=== PATIENT | female | born 1960 | race Asian ===

== ENCOUNTER 2018-08-08 13:12 | Emergency (ER) | payer SELFPAY ==
[~2018-08-08] VITALS: Ht 160 cm; Wt 47.2 kg
--- NOTE | 2018-08-08 13:30 | NUR ---
ED Nurse Note: PT ASKED TO CHANGE INTO GOWN FOR EVALUATION AND SO SHE CAN BE CONNECTED TO MEDICAL RECORDS ANALYST. PT STATES IT IS "TOO COLD" AND THAT SHE WANTS "A YORUBA DOCTOR" AND IS RESISTIVE TO CARE. PT INFORMED THAT WE DO NOT HAVE A YORUBA PHYSICIAN AND ASKED WHY SHE CALLED 911 IF SHE WANTED TO SEE A YORUBA DOCTOR. NO ANSWER. PT CALLED HER TO PICK HER UP FROM [facility]. PT'S GIVEN ADDRESS TO [facility]. PT'S STATES HE WILL BE COMING TO PICK HER UP FROM THE WAITING ROOM. 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 PT NEVER SEEN BY DR. PRESTON.
--- NOTE | 2018-08-08 13:34 | Emergency Room Report ---
History of Present Illness General Chief Complaint: Lower Back Pain or Injury Source: Significant Other Present Illness Allergies: Coded Allergies: No Known Allergies (Unverified , 08/08/18) Patient History Now: No Nursing Documentation-[facility] Past Medical History: No Stated History Physical Exam Vital Signs Date Time Temp Pulse Resp B/P (MAP) Pulse Ox O2 Delivery O2 Flow Rate FiO2 08/08/18 13:13 98.4 70 16 97/54 98 Room Air Medical Decision Making ER Course patient left without being seen.She was brought in by paramedics was in the ambulance bay in acute pain lower back and pelvic area. CT had been ordered however patient left prior to being seen after arriving Last Vital Signs Date Time Temp Pulse Resp B/P (MAP) Pulse Ox O2 Delivery O2 Flow Rate FiO2 08/08/18 13:13 98.4 70 16 97/54 98 Room Air Status: unchanged Disposition: LEFT W/OUT BEING SEEN Condition: Unknown Jordan Hammond DO Aug 08, 2018 13:34
[2018-08-08 13:50] VITALS: BP 97/54
== END 2018-08-08 13:30 | disposition left against medical advice (07) ==
LOC: EDBD 13:12 → EMR 13:30
DX: M54.5 Low back pain (principal); Z53.21 Procedure and treatment not carried out due to patient leaving prior to being seen by health care provider

== ENCOUNTER 2018-09-16 03:44 | Emergency (ER) | payer SELFPAY ==
[~2018-09-16] VITALS: Ht 162.6 cm; Wt 54.4 kg
[2018-09-16] VITALS (9 sets, daily range): BP systolic 129–160; BP diastolic 77–100
--- NOTE | 2018-09-16 03:46 | NUR ---
ED Nurse Note: Pt TRUDY 29 from home for overdose and said SA. Stated that patient had been trying to harm herself throughout the night. Pt was found by in restroom with multiple pill bottles on floor (Clonazepam 1mg, Olanzapine 50, Quetiapine 5 mg), unknown how many pills were taken. Upon arrival pt seen with bruising on left eye and left side of head, cut on bridge of nose and dried blood on side of mouth. Pt A/Ox2, czech speaking, unable to answer questions adequately as pt remains confused and disoriented. Pt denying suicidal ideations and denying taking too many pills.
[2018-09-16] MEDS ORDERED: KLONOPIN1 MG ORAL (03:52)
[2018-09-16] MEDS ORDERED: QUETIAPINE FUMA50 MG ORAL (03:52)
[2018-09-16] MEDS ORDERED: ZYPREXA5 MG ORAL (03:52)
--- NOTE | 2018-09-16 03:53 | Emergency Room Report ---
History of Present Illness General Chief Complaint: Overdose Source: Patient, Medical Record, EMS Present Illness HPI This is a 58-year-old [place] female with psychiatric history. She is currently on Klonopin, Clozaril and Seroquel. She presents with chief complaint of overdose. She has a previous psychiatric history with 4-5 suicidal attempts. She was found unresponsive by her . She took unknown amount of her psychiatric medication very she was confused and lethargic per EMS. No focal deficit. Patient denies any other symptoms. Allergies: Coded Allergies: No Known Allergies (Unverified , 08/08/18) Patient History Past Medical History: see triage record, old chart reviewed, psych hx Past Surgical History: other Family History: none Social History: Last Menstrual Period: na Now: No Immunizations: other Reviewed Nursing Documentation: PMH: Agreed; PSxH: Agreed Nursing Documentation-PMH History Of Psychiatric Problem: Yes - SI Review of Systems ENT: Denies: sore throat Cardiovascular: Denies: chest pain, palpitations Gastrointestinal/Abdominal: Denies: nausea, vomiting, diarrhea Musculoskeletal: Denies: back problems Skin: Denies: rash Neurological: Denies: COHEN, seizures All Other Systems: negative except mentioned in HPI Physical Exam Vital Signs Date Time Temp Pulse Resp B/P (MAP) Pulse Ox O2 Delivery O2 Flow Rate FiO2 09/16/18 03:45 98.4 122 20 97 Room Air vitals with tachycardia. Repeat heart rate 88 Sp02 EP Interpretation: reviewed, normal General Appearance: no apparent distress, non-toxic, other - Drowsy Head: normocephalic, other - She has ecchymosis to right frontal and facial. This appeared to be 3-4 days old. Eyes: PERRL, EOMI ENT: oropharynx normal Neck: supple/symm/no masses Respiratory: effort normal, no rhonchi, no wheezing Cardiovascular: no murmur, gallop, rub Gastrointestinal: non-tender, no mass, non-distended, no rebound/guarding, normal bowel sounds Neurologic: oriented x3, sensory intact, motor strength/tone normal Skin: no rash, normal palpation Medical Decision Making Diagnostic Impression: Primary Impression: Drug overdose Qualified Codes: T50.902A - Poisoning by unspecified drugs, medicaments and biological substances, intentional self-harm, initial encounter Additional Impressions: Suicidal ideations Head injury, acute Qualified Codes: S09.90XA - Unspecified injury of head, initial encounter ER Course Patient presents with unknown overdose. Labs unremarkable. Per , she been expressing suicidal thoughts. She been try to hurt herself by banging her head against the wall. She's not taking her psychiatric medication. Patient is a danger to himself. Because of this, I placed her on a 5150 hold. She is medically clear for psychiatric evaluation/transfer. Lab Results Impression labs unremarkable EKG Diagnostic Results Rate: normal Rhythm: NSR ST Segments: no acute changes Rhythm Strip Diag. Results EP Interpretation: yes Rate: 86 Rhythm: NSR, no PVC's, no ectopy CT/MRI/US Diagnostic Results CT/MRI/US Diagnostic Results : Imaging Test Ordered: CT head Impression negative per radiologist Last Vital Signs Date Time Temp Pulse Resp B/P (MAP) Pulse Ox O2 Delivery O2 Flow Rate FiO2 09/16/18 03:45 98.4 122 20 97 Room Air Status: improved Disposition: XFER TO PSYCH HOSP/UNIT Condition: Stable Michael Hector MD September 16, 2018 03:53
[2018-09-16 04:02] LABS: BASOPHILS % (AUTO) 0.4 % (0.0-2.0); EOSINOPHILS % (AUTO) 0.4 % (0.0-3.0); HEMATOCRIT 42.5 % (37.0-47.0); HEMOGLOBIN 14.5 G/DL (12.0-16.0); LYMPHOCYTES % (AUTO) 18.5 % (20.0-45.0); MEAN CORPUSCULAR VOLUME 91 FL (80-99); MONOCYTES % (AUTO) 4.1 % (1.0-10.0); NEUTROPHILS % (AUTO) 76.6 % (45.0-75.0); PLATELET COUNT 320 K/UL (150-450); RED BLOOD COUNT 4.67 M/UL (4.20-5.40); RED CELL DISTRIBUTION WIDTH 11.2 % (11.6-14.8); WHITE BLOOD COUNT 11.4 K/UL (4.8-10.8)
--- NOTE | 2018-09-16 04:08 | NUR ---
ER Nurse Note: Sitter at bedside. All belongings taken and placed in Locker 1.
[2018-09-16 04:15] LABS: ANION GAP 14 mmol/L (5-15); BLOOD UREA NITROGEN 10 mg/dL (7-18); CALCIUM 8.8 MG/DL (8.5-10.1); CARBON DIOXIDE 20 MMOL/L (21-32); CHLORIDE 104 MMOL/L (98-107); CREATININE 0.8 MG/DL (0.55-1.30); POTASSIUM 3.4 MMOL/L (3.5-5.1); SODIUM 138 MMOL/L (136-145)
[2018-09-16 04:17] LABS: ALANINE AMINOTRANSFERASE 21 U/L (12-78); ALBUMIN 3.7 G/DL (3.4-5.0); ASPARTATE AMINO TRANSFERASE 18 U/L (15-37); BILIRUBIN,TOTAL 0.3 MG/DL (0.2-1.0)
[2018-09-16 04:18] LABS: ALBUMIN/GLOBULIN RATIO 0.9 (1.0-2.7); ALKALINE PHOSPHATASE 120 U/L (46-116)
--- NOTE | 2018-09-16 04:30 | NUR ---
ED Nurse Note: arrived and states that pt has been refusing to take medications. Two weeks ago pt harmed herself by banging head on wall. Per pt has been stating she want to harm self and kill herself.
[2018-09-16 04:35] LABS: APPEARANCE,URINE CLEAR; BILIRUBIN, URINE NEGATIVE (NEGATIVE); COLOR,URINE PALE YELLOW; GLUCOSE, URINE (UA) 3+ (NEGATIVE); KETONES,URINE 1+ (NEGATIVE); LEUKOCYTE ESTERASE ,URINE NEGATIVE (NEGATIVE); NITRITE,URINE NEGATIVE (NEGATIVE); PH,URINE 5 (4.5-8.0); PROTEIN,URINE 3+ (NEGATIVE); UROBILINOGEN,URINE NORMAL MG/DL (0.0-1.0)
--- NOTE | 2018-09-16 04:43 | Diagnostic Imaging Report ---
EXAM: CT Head Without Intravenous Contrast CLINICAL HISTORY: TRAUMA TECHNIQUE: Axial computed tomography images of the head/brain without intravenous contrast. CTDI is 70 mGy and DLP is 1309 mGy-cm. One or more of the following dose reduction techniques were used: automated exposure control, adjustment of the mA and/or kV according to patient size, use of iterative reconstruction technique. COMPARISON: No relevant prior studies available. FINDINGS: Brain: Unremarkable. No hemorrhage. No significant white matter disease. No edema. Ventricles: Unremarkable. No ventriculomegaly. Bones/joints: Unremarkable. No acute fracture. Soft tissues: Unremarkable. Sinuses: Unremarkable as visualized. No acute sinusitis. Mastoid air cells: Unremarkable as visualized. No mastoid effusion. IMPRESSION: No acute intracranial pathology.
--- NOTE | 2018-09-16 06:09 | NUR ---
ED Nurse Note: Pt awake and alert. Resting comfortably. Sitter at bedside. Showing no signs of distress. VSS.
--- NOTE | 2018-09-16 07:32 | NUR ---
ED Nurse Note: Report given to ANTHONY Núñez.
--- NOTE | 2018-09-16 07:45 | NUR ---
ED Nurse Note: Received patient in bed in stable condition. sitter at bedside. pt awake and make frequent movement in bed but nonverbal. pt speaks Khmer, questions were asked in Khmer. pt makes eye contact but still no answer. pt was asked to squeez nurse's hand and did not follow the direction. suicidal idea was unable to assess. no cardiac or pulmonary distress noted at this time. pt is on room air and vital signs stable as documented.
--- NOTE | 2018-09-16 08:08 | NUR ---
ED Nurse Note: She started talking to the nurse. she denied suicidal idea. per pt, she lost her conscious in the bathroom and the medication bottles were there because she was looking for them and when she found bottles she lost her conscious. pt denied overdosing medications. pt was able to ambulate to the bathroom with sitter in steady gait.
--- NOTE | 2018-09-16 09:30 | NUR ---
ED Nurse Note: sandwich and juice were provided per pt's request.
--- NOTE | 2018-09-16 09:54 | NUR ---
ED Nurse Note: pt ambulated with steady gait to bathroom with sitter.
--- NOTE | 2018-09-16 11:00 | NUR ---
ED Nurse Note: pt requested to remove monitor from her since it is bothering her to rest. it was removed and vital signs have been stable.
--- NOTE | 2018-09-16 14:20 | NUR ---
ED Nurse Note: Received verbal order to check blood sugar. the result 108 mg/dl was reported to [facility].
--- NOTE | 2018-09-16 14:40 | NUR ---
ED Nurse Note: pt ambulated to the bathroom with sitter and was moved to ortho room since she will not be on monitor. sitter at bedside. pt's son came and spoke to nurse about pt's condition.
--- NOTE | 2018-09-16 14:42 | NUR ---
ED Nurse Note: Received pt from Babak Huddleston RN. Pt went to the restroom and went back to Ortho room via wheelchair, pt is restless. Pt is awake and alert, no SI/HI at this time. Bruise noted on L eye, healing. Lunch provided at bedside, assisted by sitter. Sons are at bedside.
[2018-09-16 14:45] LABS: APPEARANCE,URINE CLEAR; BILIRUBIN, URINE NEGATIVE (NEGATIVE); COLOR,URINE PALE YELLOW; GLUCOSE, URINE (UA) NEGATIVE (NEGATIVE); KETONES,URINE NEGATIVE (NEGATIVE); LEUKOCYTE ESTERASE ,URINE 1+ (NEGATIVE); NITRITE,URINE NEGATIVE (NEGATIVE); PH,URINE 6 (4.5-8.0); PROTEIN,URINE NEGATIVE (NEGATIVE); UROBILINOGEN,URINE NORMAL MG/DL (0.0-1.0)
--- NOTE | 2018-09-16 15:30 | NUR ---
ED Nurse Note: Pt only drank milk from lunch tray, complained of dizziness sometimes. Bed at lowest position, all brakes engaged. No sign of acute distress. Will cont to monitor.
--- NOTE | 2018-09-16 16:52 | NUR ---
ED Nurse Note: Pt is sleeping in bed comfortably, sitter at bedside. No sign of acute distress.
[2018-09-16] MEDS ORDERED: Cephalexin 500mg cap ORAL ONE (18:00)
--- NOTE | 2018-09-16 18:13 | NUR ---
ED Nurse Note: patient c/o dizziness. pt is back to library monitor bed.
--- NOTE | 2018-09-16 18:30 | NUR ---
ED Nurse Note: ERMD at bedside to assess the patient but unable to assess the patient. pt did not answer the ERMD's questions and kept repeating "Stop talking. stop talking to me" in Portuguese.
--- NOTE | 2018-09-16 19:23 | NUR ---
HAND-OFF: Report given to ANTHONY Resendiz. no orders to carry at this moment. looking for a placement for pt.
--- NOTE | 2018-09-16 19:30 | NUR ---
ED Nurse Note: Patient being monitored by sitter. Patient calm no s/s of acute distress.
--- NOTE | 2018-09-16 20:35 | NUR ---
ED Nurse Note: PATIENT ACCOMPANIED BY SITTER, NO S/S OF ACUTE DISTRESS, VITAL SIGNS STABLE.
--- NOTE | 2018-09-16 21:37 | NUR ---
ED Nurse Note: PATIENT WAS GIVEN MEDICATION TO SLEEP. SHE WAS COMPLIANT WITH ADMINISTRATION. PATIENT ALSO DRANK SOME OF THE SOUP HER SON BROUGHT HER.
[2018-09-16] MEDS ORDERED: ALPRAZolam 0.5mg tab ORAL ONE (21:45)
--- NOTE | 2018-09-16 22:40 | NUR ---
ED Nurse Note: PATIENT ATTEMPTING TO REST, ACCOMPANIED BY SITTER.
--- NOTE | 2018-09-16 23:35 | NUR ---
ED Nurse Note: PATIENT CLEARED FOR TRANSPORT TO [facility], report given to Suzan CRUZ at the facility and to BLS transport simultaneously.
== END 2018-09-16 23:49 ==
LOC: EDUNIT# 03:44 → EDBD 03:44 → EMR 03:56
DX: T50.902A Poisoning by unspecified drugs, medicaments and biological substances, intentional self-harm, initial encounter (principal); R45.851 Suicidal ideations; S09.90XA Unspecified injury of head, initial encounter; X58.XXXA Exposure to other specified factors, initial encounter; Y92.9 Unspecified place or not applicable; E11.9 Type 2 diabetes mellitus without complications
CPT/HCPCS: 36415; 70450; 80053; 80307; 81003; 82962; 85025; 93005; 96360; 99285; G0480; 80329